=== PATIENT | female | born 1945 | race American Indian/Alaskan Native ===

== ENCOUNTER 2018-01-23 09:27 | Outpatient (CLI) | payer MEDICARE ==
--- NOTE | 2018-01-24 11:51 | Mammography Report ---
BILATERAL MAMMOGRAM: FINDINGS: The breasts are almost entirely fat (<25% glandular). No mass, distortion, suspicious calcification, or skin change is seen. A pacemaker obscures the left axilla. CAD was utilized. IMPRESSION: Negative mammogram. There is no mammographic evidence of malignancy. RECOMMENDATION: Follow-up per ACS guidelines. BI-RADS CATEGORY: 1 = Negative ACR BI-RADS MAMMOGRAPHIC CODES: 0 = Needs additional imaging evaluation; 1 = Negative; 2 = Benign; 3 = Probably benign; 4 = Suspicious; 5 = Malignant; 6 = Known biopsy-proven malignancy COMMENT: 1. Dense breast tissue, i.e., adenosis, fibrocystic changes, etc., may obscure an underlying neoplasm. 2. Approximately 10% of cancers are not detected with mammography. 3. A negative mammography report should not delay biopsy if a clinically suspicious mass is present. COMMENT: Patient follow-up letters are generated in [employer].
--- NOTE | 2018-01-24 11:53 | Mammography Report ---
BONE DENSITY STUDY: Postmenopausal osteoporosis. DEFINITIONS: BMD = Bone Mineral Density T-score = BMD related to mean peak bone mass of young adult (mean expressed in Standard Deviation) Z-score = Age matched BMD expressed in SD World Health Organization (WHO) Diagnostic Criteria Normal T-score > -1 SD Osteopenia T-score between -1 and -2.4 SD Osteoporosis T-score -2.5 SD or below FINDINGS: The weighted average BMD of lumbar spine L1-L4 is 1.080 with a T-score of 0.3. The weighted average BMD of the left hip is 1.168 with a T-score of 1.9. IMPRESSION: The patient's average T-score is diagnostic for normal bone density and low relative risk for fracture. NOTE: BMD is not the only risk factor for fracture; also consider factors such as the patient's age, risk of falling, previous osteoporotic fracture, family history of osteoporotic fractures, current smoker, and low body weight. Gould's triangle is a region of interest in femur, predominantly of trabecular bone. It is not a true anatomic site, and [facility] does not recommend its use clinically.
== END 2018-01-23 09:28 | disposition home or self-care (01) ==
LOC: MAMMO 09:27
PROVIDERS: ATTEND Internal Medicine
DX: Z12.31 Encounter for screening mammogram for malignant neoplasm of breast (principal); Z13.820 Encounter for screening for osteoporosis; Z78.0 Asymptomatic menopausal state
CPT/HCPCS: 77067; 77080

== ENCOUNTER 2021-06-22 08:33 | Day surgery (SDC) | payer MEDICARE ==
[2021-06-22] MEDS ORDERED: ASPIRIN EC 325 MG TAB PO NR (09:11)
[2021-06-22 09:46] LABS: Basophils % (Auto) 0.4 % (0.0-1.8); Eosinophils # (Auto) 0.1 K/mm3 (0.0-0.4); Eosinophils % (Auto) 1.6 % (0.0-4.3); Hematocrit 39.4 % (30.3-42.9); Hemoglobin 13.3 gm/dl (10.1-14.3); Lymphocytes # (Auto) 1.9 K/mm3 (1.2-5.4); Mean Corpuscular HGB Conc 34 % (30-34); Mean Corpuscular Volume 95 fl (79-97); Monocytes # (Auto) 0.7 K/mm3 (0.0-0.8); Monocytes % (Auto) 8.3 % (0.0-7.3); Platelet Count 181 K/mm3 (140-440); Red Blood Count 4.16 M/mm3 (3.65-5.03); Red Cell Distribution Width 15.2 % (13.2-15.2)
[2021-06-22 09:57] LABS: INR 0.98 (0.87-1.13)
[2021-06-22] MEDS ORDERED: SODIUM CHLORIDE 0.9% 500 ML 500 ML IV SCH (10:00)
[2021-06-22 10:05] LABS: BUN/Creatinine Ratio 20; Blood Urea Nitrogen 18 mg/dL (7-17); Calcium 9.9 mg/dL (8.4-10.2); Hemolysis Index 10
[2021-06-22] MEDS ORDERED: HEPARIN/NS 5000 UNIT/500ML 1,000 ML IR ONE (11:05)
[2021-06-22] MEDS ORDERED: SODIUM CHLORIDE 0.9% 1000 ML 1,000 ML IV SCH (11:30)
[2021-06-22] MEDS: MIDAZOLAM 2 MG/2 ML INJ ONE ×4 (11:34→12:48)
[2021-06-22] MEDS: fentaNYL 100 MCG/2 ML INJ ONE ×4 (11:34→12:48)
[2021-06-22] MEDS: LIDOCAINE (2%) 20 MG/1 ML VIAL 20 ML MDV INFILTRATI ONE ×3 (11:35→12:35)
[2021-06-22] MEDS ORDERED: traMADol 50 MG TAB PO PRN (12:00)
--- NOTE | 2021-06-22 13:34 | Cardiac Catherization Report ---
DATE OF SERVICE: 06/22/2021 CARDIAC CATHETERIZATION REPORT REASON FOR PROCEDURE: Shortness of breath. PROCEDURES: 1. Right heart catheterization. 2. Left heart catheterization. 3. Selective left and right coronary angiography. 4. Left ventricular angiography. 5. Sedation time start 12:48, and 1300. DESCRIPTION OF PROCEDURE: The patient was prepped and draped in a sterile fashion after informed consent. The right femoral artery and vein were both entered using the Seldinger technique. A 6-Nepali sheath was placed in the artery and an 8-Nepali sheath in the vein. A Halethorpe-Siomara catheter was then advanced through the venous sheath to the pulmonary artery position. Cardiac output was measured using thermodilution method. A pigtail catheter was then inserted through the arterial sheath into the left ventricle. Simultaneous right and left heart filling pressures were recorded. The Halethorpe-Siomara catheter was then withdrawn and right heart pressures were then recorded on pullback. Left ventricular angiography was performed following which the pigtail catheter was then withdrawn across the aortic valve and transaortic gradient recorded. We then performed selective left and right coronary angiography using #4 right and left Piero catheters. The catheters were removed. Hemostasis in both femoral artery and veins were done using manual compression. The patient was returned to the postprocedure unit in stable condition. There were no complications. FINDINGS: HEMODYNAMICS: The mean right atrial pressure was 15. Right ventricular pressure was 50/20. Pulmonary artery pressure 45/28. The mean pulmonary artery wedge pressure was 25. Left ventricular end diastolic pressure was 25-30. Ascending aortic pressure was 166/67. There was no significant pressure gradient on pullback across the aortic valve. Cardiac output was measured at 6.39 liters per minute. CORONARY ANGIOGRAPHY: There was mild diffuse coronary calcification. The left main coronary artery was free of significant disease. The left anterior descending artery contained diffuse mild atherosclerosis involving its proximal and mid segments. Otherwise, no significant obstructive lesions were noted in the LAD or diagonal system. The circumflex artery and its obtuse marginal branches contained mild luminal irregularities. The right coronary artery was dominant. This vessel contained a 30-40% stenosis of its proximal segment, followed by mild luminal irregularities of the mid segment. No significant obstructive lesions were noted in either left or right coronary systems. There was mild to moderate left ventricular systolic dysfunction with mild diffuse hypokinesis, left ventricular ejection fraction estimated at 40%. CONCLUSIONS: 1. Mild to moderate increase in right and left heart filling pressures, mild to moderate pulmonary hypertension. 2. Mild diffuse atherosclerosis as reported above, no significant obstructive coronary lesions noted. 3. Mild, nonischemic cardiomyopathy, left ventricular ejection fraction estimated at 40%. RECOMMENDATIONS: Risk factor modification and medical therapy. TID: [id number] RECEIPT: [id number] CA/HUS
--- NOTE | 2021-06-22 13:48 | Discharge Summary ---
Short Stay Discharge Plan Activity: advance as tolerated Weight Bearing Status: Partial Weight Bearing Diet: low fat, low cholesterol, low salt, diabetic Wound: keep clean and dry Special Instructions: smoking cessation, no heavy lifting (3 days), hold Metformin (48-hours) Follow up with: DAGO MONTANEZ MD [Primary Care Provider] - 7 Days RUDDY COOK MD [Staff Physician] - 7 Days
[2021-06-22 18:00] VITALS: BP 164/75
--- NOTE | 2021-06-28 14:11 | Electrocardiograph Report ---
[facility] Test Date: 2021-06-22 Test Time: 09:49:35 Pat Name: MIGUEL HERRERA Department: Room: Gender: F Associate Field Service Engineer: ALFRED : [id number] Requested By: MATT WORKMAN Order Number: [id number] Reading MD: Matt Workman Measurements Intervals Dorothy Rate: 61 P: 43 CA: 270 QRS: 5 QRSD: 113 T: 11 QT: 454 QTc: 458 Interpretive Statements Sinus rhythm Prolonged CA interval Probable left ventricular hypertrophy No previous ECG available for comparison Electronically Signed On 06-28-2021 14:10:39 EDT by Matt Workman
== END 2021-06-22 18:30 | disposition home or self-care (01) ==
LOC: CATHLABREC 08:33
PROVIDERS: ATTEND Internal Medicine Cardiovascular Disease
DX: I34.0 Nonrheumatic mitral (valve) insufficiency (principal); I11.0 Hypertensive heart disease with heart failure; I50.9 Heart failure, unspecified; E78.00 Pure hypercholesterolemia, unspecified; G47.30 Sleep apnea, unspecified; K21.9 Gastro-esophageal reflux disease without esophagitis; M19.90 Unspecified osteoarthritis, unspecified site; E66.9 Obesity, unspecified; Z86.73 Personal history of transient ischemic attack (TIA), and cerebral infarction without residual deficits; Z79.82 Long term (current) use of aspirin; Z79.899 Other long term (current) drug therapy; Z98.890 Other specified postprocedural states; Z68.41 Body mass index [BMI] 40.0-44.9, adult
CPT/HCPCS: 36415; 80048; 85025; 85610; 85730; 93005; 93460; 99156; C1894; J1644; J2250; J3010; J7040; Q9967